=== PATIENT | male | born 1975 | race Caucasian/White ===

== ENCOUNTER 2025-06-16 01:55 | Observation (INO) | payer MEDICAID, SELFPAY ==
[2025-06-16] VITALS (14 sets, daily range): BP systolic 99–144; BP diastolic 64–92; PULSE 72–115; RESP 16–22; TEMP 36.5–38.7; O2SAT 93–110; BMI 182780.0; BMI 32.4; BMI 34.3
--- NOTE | 2025-06-16 02:10 | EKG_ITS ---
[facility] Test Date: 2025-06-16 Pat Name: SHANICE CHÁVEZ Department: Room: - Gender: Male Guide: : 1975 Requested By: Amari Alexis Order Number: [id number] Reading MD: Amari Alexis Measurements Intervals [place] Rate: 116 P: 51 MS: 131 QRS: 37 QRSD: 93 T: 59 QT: 314 QTc: 437 Interpretive Statements SINUS TACHYCARDIA ABNORMAL RHYTHM ECG No previous ECG available for comparison /store/S0/[id number].pdf
--- NOTE | 2025-06-16 02:10 | PD.EDRME ---
Rapid Medical Screening Exam RME Arrival date/time: 06/16/25 01:55 This is a case of a 49-year-old male who came into the emergency room due to generalized weakness vomiting abdominal pain for 1 day no chest pain no shortness of breath persistence of the symptoms this patient called 911 and hence was brought by the ambulance Chief Complaint: General Adult/Misc Complain Time Seen by Provider: 06/16/25 02:09 Vital signs: Vital Signs Temperature 99.0 F 06/16/25 02:07 Pulse Rate 112 H 06/16/25 02:07 Respiratory Rate 18 06/16/25 02:07 Blood Pressure 116/65 06/16/25 02:07 Pulse Oximetry (%) 94 L 06/16/25 02:07 Oxygen Delivery Method Room Air 06/16/25 02:07
[2025-06-16 02:52] LABS: Basophils # (Auto) 0.0 Thou/mm3 (0.0-0.2); Basophils % (Auto) 0 % (0-2.5); Eosinophils # (Auto) 0.0 Thou/mm3 (0.0-0.5); Eosinophils % (Auto) 0 % (0-10); Hematocrit 43.8 % (41.0-53.0); Hemoglobin 15.1 g/dL (13.5-16.0); Immature Granulocytes Auto 0.25 Thou/mm3 (0.00-0.00); Lymphocytes # (Auto) 1.4 Thou/mm3 (1.0-4.8); Lymphocytes % (Auto) 7 % (10-50); Mean Corpuscular HGB Conc 34.5 g/dl (31.0-37.0); Mean Corpuscular Hemoglobin 31.0 pg (25.0-35.0); Mean Corpuscular Volume 90 fL (80-100); Monocytes # (Auto) 0.7 Thou/mm3 (0.0-0.8); Monocytes % (Auto) 4 % (0-12); Neutrophils # (Auto) 17.0 Thou/mm3 (1.8-7.7); Neutrophils % (Auto) 88 % (37-80); Nucleated Red Blood Cell # 0.00 Thou/mm3 (0.00-0.00); Nucleated Red Blood Cell % 0 /100 WBC (0); Platelet Count 124 Thou/mm3 (140-440); RDW Standard Deviation 43.7 fL (35.1-43.9); Red Blood Count 4.87 Miln/mm3 (4.50-5.90); White Blood Count 19.4 Thou/mm3 (3.8-10.6)
[2025-06-16 02:56] LABS: Alanine Aminotransferase 26 U/L (10-49); Albumin, Serum 4.1 gm/dL (3.5-5.0); Albumin/Globulin Ratio 1.5 (1.2-2.2); Alkaline Phosphatase 83 U/L (46-116); Anion Gap 11 (7-16); Aspartate Amino Transferase 36 U/L (0-34); BUN/Creatinine Ratio 9 Ratio (12-20); Bilirubin,Total 1.0 mg/dL (0.3-1.2); Blood Urea Nitrogen 10 mg/dL (9-23); Calcium 8.8 mg/dL (8.3-10.6); Calcium (Corrected) 8.8 mg/dL (8.5-10.1); Carbon Dioxide 19.9 mMol/L (20.0-31.0); Chloride 99 mMol/L (98-107); Creatinine (Component) 1.1 mg/dL (0.6-1.3); Estimated Creatinine Clearance 82.1 mL/min (>60); Globulin 2.8 gm/dL (2.3-3.5); Glucose 112 mg/dL (74-106); Lipase 23 U/L (12-53); Osmolality,Calculated 260 (275-295); Potassium 4.0 mMol/L (3.4-5.1); Sodium 130 mMol/L (136-145); Total Protein 6.9 gm/dL (5.7-8.2); Troponin I < 0.020 ng/mL (0.0-0.045); eGFR > 60 See Note
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
[2025-06-16] MEDS: SODIUM CHLORIDE 0.9% 1000 ML 1,000 ML 999 ML IV (04:15)
[2025-06-16] MEDS: cefTRIAXone/D5w 1gm IV premix 1 GM/50 ML BAG IV (04:29)
[2025-06-16 04:57] LABS: Lactate (Lactic Acid) 1.4 mMol/L (0.4-2.0)
[2025-06-16] MEDS: ACETAMINOPHEN 325 MG TABLET 650 MG PO (05:09)
[2025-06-16 05:10] LABS: Collection Type, Urine Clean Catch
--- NOTE | 2025-06-16 05:11 | PC.NURSE ---
PT BROUGHT IN MY EMS TO THE ED FOR GENERALIZED WEAKNESS AND N/V FOR X2DAYS. PT HAS SEVERE REDNESS AND SWELLING ON THE LEFT LEG
[2025-06-16 05:17] LABS: Bilirubin,Urine Negative (Negative); Blood,Urine Negative (Negative); Clarity,Urine Clear (Clear/Hazy); Color,Urine Yellow (Lt Yel-Yel); Glucose, Urine Negative (Negative); Ketones,Urine 2+ (Negative); Leukocyte Esterase,Urine Negative (Negative); Nitrite,Urine Negative (Negative); PH,Urine 6.0 (5.0-7.0); Protein,Urine 1+ (Neg - Trace); RBC,Urine 2 /hpf (0-3); Specific Gravity,Urine 1.022 (1.001-1.035); Squamous Epithelial Cell,Urine < 1 /hpf (0-5); Urobilinogen,Urine Negative mg/dL (0.0-1.0); WBC,Urine 4 /hpf (0-5)
--- NOTE | 2025-06-16 05:24 | XR_ITS ---
Examination: Tibia-Fibula, left , 2 views Technique: Tibia-fibula AP lateral 2 views Date and time of exam: June 16, 2025, 0540 hours INDICATIONS: Injury to the knee today, knee pain FINDINGS: Injury to the lower leg today, lower leg pain. FINDINGS: No fracture or dislocation. No foreign body IMPRESSION: No fracture or dislocation
--- NOTE | 2025-06-16 05:28 | XR_ITS ---
Examination: Venous duplex lower extremity sonogram, bilateral. Date and time of exam: June 16, 2025, 0917 hrs. Indications: Patient fell last week with injury to leg, leg pain and knee pain post injury Technique: Multiple sonographic images of the deep venous system have been obtained. B-mode/2-D grayscale imaging of vascular structures and Doppler spectral analysis (waveforms) and color performed Both legs are examined. Findings: Findings consistent with nonocclusive DVT in the right popliteal vein Left popliteal vein is not visualized Remaining system unremarkable Impression: Positive for nonocclusive thrombus in the right popliteal vein
--- NOTE | 2025-06-16 05:31 | XR_ITS ---
Examination: AP chest single view TECHNIQUE: AP portable semiupright chest single view Date and time: June 16, 2025, 0547 hours INDICATIONS: Chest pain shortness of breath today. FINDINGS: Early pneumonia left base Normal heart size Right lung clear Mild osteopenia IMPRESSION: Early pneumonia left base
--- NOTE | 2025-06-16 05:37 | ESHP_ITS ---
Documentation for date of: 06/16/25 HPI History of Present Illness History of present illness: Efe Jaimes is a 49-year-old male with no PMH who presents today with leg pain. Patient states that he fell and scraped his knee while he was fishing a week ago. Since then, the leg has become more red, swollen, and painful. He endorses back pain (around T10-L2) that he says has been longstanding probably owing to his sleeping position . He also endorses shortness of breath and palpitations that come and go. Patient is medically non-compliant and has not seen a PCP in many years. In the ED, vitals showed: BP 116/65 HR 112 RR 18 Temp 99.0 SpO2 94% on room air ED Course: CBC showed elevated WBC 19.4 with neutrophilic predominance with some slight thrombocytopenia. CMP showed hyponatremia 130, slightly low carbon dioxide, slightly low osmolality 260, and slightly elevated AST 36 (normal ALT 26). UA showed 1+ protein and 2+ ketones but was otherwise unremarkable. Imaging: EKG was unremarkable. In the ED, patient was given 1 L NS bolus and IV ceftriaxone 1 g. Patient was admitted for the work-up and management of extensive left leg cellulitis. Review of Systems Review of Systems Narrative Review of Systems: General: Denies fevers or chills HEENT: Denies congestion or sore throat Heart: Endorses palpitations. Denies chest pain Lungs: Endorses shortness of breath. Denies cough Abdomen: Denies abdominal pain, nausea, vomiting, constipation, diarrhea, or blood in stool Genitourinary: Denies frequency, urgency, dysuria, or hematuria Neurology: Denies any changes in vision, weakness or difficulty speaking Musculoskeletal: Endorses back pain around T10-L2. Review of systems otherwise negative except what is mentioned above. Past Medical History Past Medical History Comments PMH COMMENT: (conducted quickly due to late admission but may warrant a more in- depth interview) PMH: none PSH: none Medications: none Allergies: none FH: none SH: none Exam Vital Signs Temp Pulse Resp BP Pulse Ox O2 Del Method 101 F H 108 H 19 124/75 93 L Room Air 06/16/25 05:09 06/16/25 03:33 06/16/25 03:33 06/16/25 03:33 06/16/25 03:33 06/16/25 03:33 Narrative Exam Physical Exam: General: Some distress. Alert. Skin: Abrasions seen on left ponce which is erythematous, edematous, and weeping. Red streaking seen climbing up left leg (lymphadenitis). Weeping. Warm, scabbing lesions on right proximal calf. Head: Normocephalic, atraumatic. Eye: Normal conjunctiva, PERRL. Throat: Oral mucosa moist. No obvious lesions in oropharynx. Cardiovascular: Tachycardic rate and normal rhythm, no murmur, +S1/S2. Respiratory: Wheezing. No crackles. Gastrointestinal: Soft, nontender, non-distended. No guarding or rebound tenderness. Extremities: Left leg is edematous. No cyanosis, no clubbing. 2+ radial pulse bilaterally, 2+ posterior tibial pulse bilaterally. Neuro: A&Ox2 (thought time was June 2026). Conversant, moving all extremities. No overt cerebellar signs/incoordination. Psychiatric: Cooperative, appropriate affect. Results: Labs 06/16/25 08:19 06/16/25 08:19 Labs: Short CBC 06/16/25 Range/Units 02:26 WBC 19.4 H (3.8-10.6) Thou/mm3 Hgb 15.1 (13.5-16.0) g/dL Hct 43.8 (41.0-53.0) % Plt Count 124 L (140-440) Thou/mm3 BMP 06/16/25 02:26 Sodium 130 L Potassium 4.0 Chloride 99 Carbon Dioxide 19.9 L BUN 10 Creatinine 1.1 Glucose 112 H Calcium 8.8 Cardiac Enzymes 06/16/25 Range/Units 02:26 Troponin I < 0.020 (0.0-0.045) ng/mL Liver Function 06/16/25 Range/Units 02:26 Total Bilirubin 1.0 (0.3-1.2) mg/dL AST 36 H (0-34) U/L ALT 26 (10-49) U/L Alkaline Phosphatase 83 (46-116) U/L Albumin 4.1 (3.5-5.0) gm/dL Urine 06/16/25 Range/Units 04:57 Urine Color Yellow (Lt Yel-Yel) Urine Clarity Clear (Clear/Hazy) Urine pH 6.0 (5.0-7.0) Ur Specific [place] 1.022 (1.001-1.035) Urine Protein 1+ A (Neg - Trace) Urine Glucose (UA) Negative (Negative) Quality Measures Quality Measures sepsis Current suspected stage: ruled out (no end-organ damage) Possible source: skin/soft tissue Blood cultures ordered: yes Antibiotic ordered: Yes Medications Home Medications and Allergies Home Medications ?Medication ?Instructions ?Recorded ?Confirmed ?Type No Known Home Medications 06/16/2505/22 History Allergies Allergy/AdvReac Type Severity Reaction Status Date / Time No Known Allergies Allergy Verified 06/16/25 02:02 Visit Medications Doxycycline Hyclate (Doxycycline 100 Mg Tablet) 100 mg PO BID PHONG Stop: 06/23/25 08:59 Heparin Sodium (Porcine) (Heparin Sod Inj 5000 Unit/Ml Vial) 5,000 unit SC Q12HR PHONG Stop: 06/30/25 08:59 Ceftriaxone Sodium/Dextrose (Rocephin/D5w 1gm Iv Premix) 1 gm in 50 mls @ 100 mls/hr IV QDAY PHONG Stop: 06/23/25 08:59 Nicotine (Nicotine Patch 7 Mg/24 Hr Patch.Td24) 7 mg TOP X1 ONE Stop: 06/16/25 05:29 Ondansetron HCl (Ondansetron Inj 2 Mg/Ml Inj 2 Ml) 4 mg IVP Q6H PRN; Protocol PRN Reason: NAUSEA OR VOMITING Stop: 07/16/25 05:27 Sennosides (Senna Tablet) 1 tab PO QDAY PRN; Protocol PRN Reason: constipation Stop: 07/16/25 05:27 Discontinued Medications Acetaminophen (Acetaminophen 325 Mg Tablet) 650 mg PO X1 ONE Stop: 06/16/25 05:02 Last Admin: 06/16/25 05:09 Dose: 650 mg Ceftriaxone Sodium/Dextrose (Rocephin/D5w 1gm Iv Premix) 1 gm in 50 mls @ 100 mls/hr IV X1 ONE Stop: 06/16/25 04:34 Last Infusion: 06/16/25 05:05 Dose: Infused Sodium Chloride (Ns) 1,000 mls @ 999 mls/hr IV .Q1H1M ONE Stop: 06/16/25 05:06 Last Infusion: 06/16/25 05:16 Dose: Infused Assessment & Plan Assessment Efe Jaimes is a 49-year-old male with no PMH who presents today with leg pain. Patient was admitted for the work-up and management of sepsis r/o 2/2 left leg cellulitis. #Extensive Cellulitis (left leg) #Leukocytosis Patient meets SIRS criteria (3/4) by the following: Temperature above 100.4 (101.7), HR>90 (112), WBC above 12 (19.4) + source of infection (left leg cellulitis) Evidence for source of infection is the finding of abrasions seen on left ponce which is erythematous, edematous, and weeping with possible lymphadenitis. qSOFA ratin Elevated WBC is likely 2/2 cellulitis Diagnostic Inquiry -CBC, CMP -Follow up on BCx -Follow up on tibia and fibula X-ray results -Follow up on CXR results -Follow up on venous doppler ultrasound of bilateral lower extremities results -BNP -Follow up on daily weight Treatment Plan -Antibiotic regimen: IV ceftriaxone 1 g qD, PO doxycycline 100 mg BID #Chronic medical problems #Smoking history #Wheezing #Ketonuria UA showed 2+ ketones and 1+ protein. Diagnostic Inquiry -Flu and pneumonia vaccine screen -Hemoglobin A1c -Lipid panel -UDS Treatment Plan -Nicotine patch -Levalbuterol prn for wheezing Hospital Management: Disposition: undergoing work-up and management of sepsis r/o 2/2 left leg cellulitis (in observation) Diet: cardiac GI Prophylaxis: none Bowel Prophylaxis: senna DVT Prophylaxis: heparin CODE STATUS: Full Code I have examined the patient and conferred with my attending, Dr. Edwards, and my senior resident, Dr. Dexter, regarding them. Taran Partida DO PGY-1 Internal Medicine Plan I attest that I was physically present for the evaluation, physical examination, lab and imaging review of the patient with the residents. I discussed the case with the residents and agree with the findings and plans of care as documented above. After examination of the patient and review of the clinical data I feel that this patient needs observation in the hospital for further treatment/evaluation. Patient is a 49 years old male with no known medical history presented to the ED with complaint of left leg pain. Patient stated that he scraped his left knee while fishing a week ago, following with his left leg has been getting progressively red swollen and painful. He has not seen doctors in many years. In the ED, found to be tachycardic with heart rate of 112, temperature 99.0. Rest of the vitals were within normal limits, saturating well on room air. Lab results show WBC of 19.4, sodium 130, AST 36. Urinalysis showed 1+ protein and 2+ ketones. EKG was obtained in the ED, did not show any ST changes. At bedside, patient has swelling of left leg throughout whole ponce. Noted to have redness, warmth, tenderness some weeping and breakage of skin. Also noted to have warmth and tenderness around his right calf. We will admit the patient on observation for management of extensive cellulitis of left leg. Will start him on IV antibiotics, obtain blood culture, obtain imaging of tibia and fibula and venous Doppler of bilateral lower extremities. Patient has chronic smoking history and mild wheezing, we will also obtain chest x-ray. Britney Edwards MD
--- NOTE | 2025-06-16 05:51 | PC.NURSE ---
NICOTINE PATCH NOT IN [facility]. PT DENIES ANY CRAVINGS AND STATES HE IS OKAY TO WAIT UNTIL PHARMACY IS OPEN TO BRING IT TO FLOOR.
[2025-06-16 06:30] LABS: Magnesium 1.2 mg/dL (1.6-2.6); Phosphorous 2.3 mg/dL (2.4-5.1)
[2025-06-16 06:33] LABS: B-Type Natriuretic Peptide 94 pg/mL (0-100)
[2025-06-16 06:34] LABS: Amphetamine/Methamp Scrn,U Positive (Negative); Barbiturate Screen,Urine Negative (Negative); Benzodiazepines Screen,Urine Negative (Negative); Benzoylecgonine Screen, Ur Negative (Negative); Fentanyl Screen,Urine Negative (Negative); Opiate Screen,Urine Negative (Negative); THC Screen,Urine Positive (Negative)
--- NOTE | 2025-06-16 07:56 | PC.NURSE ---
pt to ER with complaints of altered mental status currently pt lethargic however AA x3 soiled smeared brown stool. pt clean brief applied linen changed awaiting labs assessed vital signs taken pt states he lives with his gf
[2025-06-16 08:27] LABS: Basophils # (Auto) 0.0 Thou/mm3 (0.0-0.2); Basophils % (Auto) 0 % (0-2.5); Eosinophils # (Auto) 0.0 Thou/mm3 (0.0-0.5); Eosinophils % (Auto) 0 % (0-10); Hematocrit 43.8 % (41.0-53.0); Hemoglobin 15.1 g/dL (13.5-16.0); Immature Granulocytes Auto 0.13 Thou/mm3 (0.00-0.00); Lymphocytes # (Auto) 1.5 Thou/mm3 (1.0-4.8); Lymphocytes % (Auto) 9 % (10-50); Mean Corpuscular HGB Conc 34.5 g/dl (31.0-37.0); Mean Corpuscular Hemoglobin 31.2 pg (25.0-35.0); Mean Corpuscular Volume 91 fL (80-100); Monocytes # (Auto) 0.9 Thou/mm3 (0.0-0.8); Monocytes % (Auto) 5 % (0-12); Neutrophils # (Auto) 14.2 Thou/mm3 (1.8-7.7); Neutrophils % (Auto) 85 % (37-80); Nucleated Red Blood Cell # 0.00 Thou/mm3 (0.00-0.00); Nucleated Red Blood Cell % 0 /100 WBC (0); Platelet Count 125 Thou/mm3 (140-440); RDW Standard Deviation 44.3 fL (35.1-43.9); Red Blood Count 4.84 Miln/mm3 (4.50-5.90); White Blood Count 16.7 Thou/mm3 (3.8-10.6)
--- NOTE | 2025-06-16 08:27 | PC.NURSE ---
called pharmacy to bring nutra phos and nicotine patch to ER not in our pixys
[2025-06-16] MEDS: Magnesium Sulfate 2 GM Ivpb 2 GM/50 ML BAG IV (08:32)
[2025-06-16 08:45] LABS: Alanine Aminotransferase 25 U/L (10-49); Albumin, Serum 4.0 gm/dL (3.5-5.0); Albumin/Globulin Ratio 1.5 (1.2-2.2); Alkaline Phosphatase 80 U/L (46-116); Anion Gap 10 (7-16); Aspartate Amino Transferase 38 U/L (0-34); BUN/Creatinine Ratio 10 Ratio (12-20); Bilirubin,Total 0.7 mg/dL (0.3-1.2); Blood Urea Nitrogen 11 mg/dL (9-23); Calcium 8.6 mg/dL (8.3-10.6); Calcium (Corrected) 8.6 mg/dL (8.5-10.1); Carbon Dioxide 23.7 mMol/L (20.0-31.0); Chloride 100 mMol/L (98-107); Creatinine (Component) 1.1 mg/dL (0.6-1.3); Estimated Creatinine Clearance 104.0 mL/min (>60); Globulin 2.7 gm/dL (2.3-3.5); Glucose 105 mg/dL (74-106); Osmolality,Calculated 267 (275-295); Potassium 4.0 mMol/L (3.4-5.1); Sodium 134 mMol/L (136-145); Total Protein 6.7 gm/dL (5.7-8.2); eGFR > 60 See Note
[2025-06-16] MEDS: HEPARIN SOD INJ 5000 UNIT/ML VIAL SC (09:24)
[2025-06-16] MEDS: DOXYCYCLINE 100 MG TABLET PO ×2 (09:24→20:12)
[2025-06-16] MEDS: NAPH,KPH MBDB 1 PACKET (1.5 GM) PO (09:24)
--- NOTE | 2025-06-16 13:43 | ESPR_ITS ---
Documentation for date of: 06/16/25 Subjective Subjective Interval history: No acute events overnight. Patient seen and examined at bedside this AM. Complaining of lower back pain (chronic but worsened due to laying on his back), and left lower extremity pain from cellulitis. Also endorses shortness of breath since fall a couple weeks ago, fell and scraped his knee while fishing. Labs and vitals were reviewed. WBC downtrending. U tox positive for meth and marijuana. Sodium 134, mild hyponatremic. Chest x-ray shows early pneumonia left base and mild osteopenia. Fibula/tibula x-ray unremarkable. EKG unremarkable. Patient does not meet sepsis criteria as there is no end organ damage, treating with IV ceftriaxone and p.o. Doxy. Patient appears to be more uncomfortable than acknowledges, possibly withdrawing from meth or marijuana. Review of systems otherwise negative except what is mentioned above. Exam Vital Signs Temp Pulse Resp BP Pulse Ox O2 Del Method 98.9 F 93 17 123/69 99 Room Air 06/16/25 12:53 06/16/25 12:53 06/16/25 12:53 06/16/25 12:53 06/16/25 12:53 06/16/25 12:53 Narrative Exam Physical Exam General: Awake and in mild distress. Conversational. HEENT: Normocephalic, atraumatic, mucous membranes moist. Heart: Regular rate and rhythm, normal S1 and S2, no murmurs. Lungs: Clear to auscultation with no wheezing or crackles. Abdomen: Soft, nondistended, nontender, positive bowel sounds. No guarding or rebound tenderness. Neurologic: Alert and oriented x3, no gross neurological deficit, and patient able to move all 4 extremities. Extremities: Erythema, swelling, and tenderness of left lower extremity. Formed scab on left ponce. Skin: No rash or ecchymoses. Objective Labs 06/17/25 05:08 06/17/25 05:08 Labs: Laboratory Results - last 24 hr 06/16/25 06/16/25 06/16/25 02:26 04:50 04:57 WBC 19.4 H RBC 4.87 Hgb 15.1 Hct 43.8 MCV 90 MCH 31.0 MCHC 34.5 RDW Std Deviation 43.7 Plt Count 124 L Neut % (Auto) 88 H Lymph % (Auto) 7 L [place] % (Auto) 4 Eos % (Auto) 0 Baso % (Auto) 0 Neut # (Auto) 17.0 H Lymph # (Auto) 1.4 [place] # (Auto) 0.7 Eos # (Auto) 0.0 Baso # (Auto) 0.0 Immature Gran # (Auto) 0.25 H Absolute Nucleated RBC 0.00 Immature Gran % 1 H Nucleated RBC % 0 Sodium 130 L Potassium 4.0 Chloride 99 Carbon Dioxide 19.9 L Anion Gap 11 BUN 10 Creatinine 1.1 Estim Creat Clear Calc 82.1 eGFR > 60 BUN/Creatinine Ratio 9 L Glucose 112 H Calculated Osmolality 260 L Lactic Acid 1.4 Calcium 8.8 Corrected Calcium 8.8 Phosphorus 2.3 L Magnesium 1.2 L Total Bilirubin 1.0 AST 36 H ALT 26 Alkaline Phosphatase 83 Troponin I < 0.020 B-Natriuretic Peptide 94 Total Protein 6.9 Albumin 4.1 Globulin 2.8 Albumin/Globulin Ratio 1.5 Lipase 23 Ur Collection Type Clean Catch Urine Color Yellow Urine Clarity Clear Urine pH 6.0 Ur Specific [place] 1.022 Urine Protein 1+ A Urine Glucose (UA) Negative Urine Ketones 2+ A Urine Blood Negative Urine Nitrite Negative Urine Bilirubin Negative Urine Urobilinogen (Auto) Negative Ur Leukocyte Esterase Negative Urine RBC 2 Urine WBC 4 Ur Squamous Epith Cells < 1 Urine Bacteria None Urine Opiates Screen Negative Urine Fentanyl Screen Negative Ur Barbiturates Screen Negative U Amphetamin/Meth Scrn Positive A U Benzodiazepines Scrn Negative U Cocaine Metab Screen Negative U Marijuana (THC) Screen Positive A 06/16/25 08:19 WBC 16.7 H RBC 4.84 Hgb 15.1 Hct 43.8 MCV 91 MCH 31.2 MCHC 34.5 RDW Std Deviation 44.3 H Plt Count 125 L Neut % (Auto) 85 H Lymph % (Auto) 9 L [place] % (Auto) 5 Eos % (Auto) 0 Baso % (Auto) 0 Neut # (Auto) 14.2 H Lymph # (Auto) 1.5 [place] # (Auto) 0.9 H Eos # (Auto) 0.0 Baso # (Auto) 0.0 Immature Gran # (Auto) 0.13 H Absolute Nucleated RBC 0.00 Immature Gran % 1 H Nucleated RBC % 0 Sodium 134 L Potassium 4.0 Chloride 100 Carbon Dioxide 23.7 Anion Gap 10 BUN 11 Creatinine 1.1 Estim Creat Clear Calc 104.0 eGFR > 60 BUN/Creatinine Ratio 10 L Glucose 105 Calculated Osmolality 267 L Lactic Acid Calcium 8.6 Corrected Calcium 8.6 Phosphorus Magnesium Total Bilirubin 0.7 AST 38 H ALT 25 Alkaline Phosphatase 80 Troponin I B-Natriuretic Peptide Total Protein 6.7 Albumin 4.0 Globulin 2.7 Albumin/Globulin Ratio 1.5 Lipase Ur Collection Type Urine Color Urine Clarity Urine pH Ur Specific [place] Urine Protein Urine Glucose (UA) Urine Ketones Urine Blood Urine Nitrite Urine Bilirubin Urine Urobilinogen (Auto) Ur Leukocyte Esterase Urine RBC Urine WBC Ur Squamous Epith Cells Urine Bacteria Urine Opiates Screen Urine Fentanyl Screen Ur Barbiturates Screen U Amphetamin/Meth Scrn U Benzodiazepines Scrn U Cocaine Metab Screen U Marijuana (THC) Screen Quality Measures Quality Measures sepsis Current suspected stage: ruled out Possible source: skin/soft tissue Blood cultures ordered: yes Antibiotic ordered: Yes Assessment & Plan Assessment Current Active Medications: Generic Name Dose Route Start Last Admin Trade Name Freq PRN Reason Stop Dose Admin Apixaban 5 mg 06/16/25 21:00 Apixaban 2.5 Mg Tablet PO 07/16/25 20:59 BID PHONG Doxycycline Hyclate 100 mg 06/16/25 09:00 06/16/25 09:24 Doxycycline 100 Mg Tablet PO 06/23/25 08:59 100 mg BID PHONG Administration Ceftriaxone Sodium/Dextrose 1 gm in 50 mls @ 100 mls/hr 06/17/25 06:00 Rocephin/D5w 1gm Iv Premix IV 06/24/25 05:59 QDAY PHONG Levalbuterol HCl 0.63 mg 06/16/25 05:54 Levalbuterol Rt 0.63 Mg/3 Ml Nebu INH 07/16/25 05:53 Q8HR PRN WHEEZING Ondansetron HCl 4 mg 06/16/25 05:28 Ondansetron Inj 2 Mg/Ml Inj 2 Ml IVP 07/16/25 05:27 Q6H PRN NAUSEA OR VOMITING Protocol Sennosides 1 tab 06/16/25 05:28 Senna Tablet PO 07/16/25 05:27 QDAY PRN constipation Protocol Plan Patient is a 49-year-old male with no significant past medical history who presents on 06/16 with left leg pain, admitted for the work-up and management of left leg cellulitis. #Left leg cellulitis #Leukocytosis Patient meets SIRS criteria (3/4) by the following: Temperature above 100.4 (101.7), HR>90 (112), WBC above 12 (19.4) + source of infection (left leg cellulitis); however no end organ damage, therefore, patient does not have sepsis. On exam, left leg is erythematous and edematous, with weeping with possible lymphadenitis. Leukocytosis likely secondary to cellulitis. qSOFA ratin 06/16: XR tibia and fibula were negative for fractures. CXR shows early left base pneumonia as well as mild osteopenia. Venous doppler US of left lower extremity showed right non-occlusive thrombus. BNP unremarkable. Plan: -Continue IV CFX and doxycycline -Pending blood cultures #Smoking history #Wheezing Possibly has COPD. - Nicotine patch - Levalbuterol prn for wheezing #Meth Use #Marijuana use Utox positive for meth and marijuana. May go into withdrawal. - Monitor for symptoms - Consider methadone if withdrawal symptoms worsen Health Maintenance Disposition: Treatment of left leg cellulitis, on antibiotics DVT prophylaxis: Heparin GI prophylaxis: Senna Diet: Cardiac CODE STATUS: FULL Patient plan of care was discussed with the attending physician, Dr. Maza. Laurence Deleon, PGY-1 Attending Provider Attestation/Addendum I have examined the patient, reviewed labs and imaging findings, discussed the case with the resident(s), and reviewed entered orders. I agree with the plan of care as outlined in this note, with these additional summaries/recommendations: Patient seen at bedside. No acute overnight events. Sepsis ruled out. Continue IV antibiotics for left leg cellulitis. No evidence of osteomyelitis although cellulitis fairly significant. Continue IV antibiotics. Blood culture results pending. Wound care as needed. Leukocytosis improving although not resolved. Left lower extremity ultrasound obtained which is positive for nonocclusive thrombus in the right popliteal vein. Patient started on Eliquis. Continue pain management as needed. Patient updated on the plan and in agreement. All questions answered to satisfaction. Please see residents note for additional details and management. Dr. Shaunna MD
[2025-06-16] MEDS: APIXABAN 2.5 MG TABLET 5 MG PO (20:12)
--- NOTE | 2025-06-16 20:15 | PC.NURSE ---
Per Dr. Partida, it is ok to give eliquis dose with a Plt count of 125.
[2025-06-16] MEDS: LEVALBUTEROL RT 0.63 MG/3 ML NEBU INH (20:37)
[2025-06-17] VITALS (7 sets, daily range): BP systolic 107–128; BP diastolic 68–82; PULSE 73–95; RESP 16–22; TEMP 36.1–37.5; O2SAT 95–99
[2025-06-17] MEDS: cefTRIAXone/D5w 1gm IV premix 1 GM/50 ML BAG IV (05:14)
[2025-06-17 06:04] LABS: Basophils # (Auto) 0.0 Thou/mm3 (0.0-0.2); Basophils % (Auto) 0 % (0-2.5); Eosinophils # (Auto) 0.1 Thou/mm3 (0.0-0.5); Eosinophils % (Auto) 1 % (0-10); Hematocrit 40.6 % (41.0-53.0); Hemoglobin 14.0 g/dL (13.5-16.0); Immature Granulocytes Auto 0.11 Thou/mm3 (0.00-0.00); Lymphocytes # (Auto) 1.5 Thou/mm3 (1.0-4.8); Lymphocytes % (Auto) 14 % (10-50); Mean Corpuscular HGB Conc 34.5 g/dl (31.0-37.0); Mean Corpuscular Hemoglobin 31.3 pg (25.0-35.0); Mean Corpuscular Volume 91 fL (80-100); Monocytes # (Auto) 0.7 Thou/mm3 (0.0-0.8); Monocytes % (Auto) 7 % (0-12); Neutrophils # (Auto) 8.1 Thou/mm3 (1.8-7.7); Neutrophils % (Auto) 77 % (37-80); Nucleated Red Blood Cell # 0.00 Thou/mm3 (0.00-0.00); Nucleated Red Blood Cell % 0 /100 WBC (0); Platelet Count 142 Thou/mm3 (140-440); RDW Standard Deviation 44.5 fL (35.1-43.9); Red Blood Count 4.48 Miln/mm3 (4.50-5.90); White Blood Count 10.5 Thou/mm3 (3.8-10.6)
[2025-06-17 06:30] LABS: Alanine Aminotransferase 22 U/L (10-49); Albumin, Serum 3.7 gm/dL (3.5-5.0); Albumin/Globulin Ratio 1.4 (1.2-2.2); Alkaline Phosphatase 74 U/L (46-116); Anion Gap 7 (7-16); Aspartate Amino Transferase 32 U/L (0-34); BUN/Creatinine Ratio 11 Ratio (12-20); Bilirubin,Total 0.5 mg/dL (0.3-1.2); Blood Urea Nitrogen 11 mg/dL (9-23); Calcium 8.4 mg/dL (8.3-10.6); Calcium (Corrected) 8.6 mg/dL (8.5-10.1); Carbon Dioxide 26.3 mMol/L (20.0-31.0); Cardiac Risk Estimate 4.5 RATIO (4.0-6.7); Chloride 102 mMol/L (98-107); Cholesterol 171 mg/dL (132-200); Creatinine (Component) 1.0 mg/dL (0.6-1.3); Estimated Creatinine Clearance 117.6 mL/min (>60); Globulin 2.7 gm/dL (2.3-3.5); Glucose 107 mg/dL (74-106); HDL Cholesterol 38 mg/dL (40-60); LDL Cholesterol,Calculated 112 mg/dL (0-130); Magnesium 1.5 mg/dL (1.6-2.6); Osmolality,Calculated 269 (275-295); Phosphorous 2.1 mg/dL (2.4-5.1); Potassium 3.7 mMol/L (3.4-5.1); Sodium 135 mMol/L (136-145); Total Protein 6.4 gm/dL (5.7-8.2); Triglycerides 103 mg/dL (30-150); eGFR > 60 See Note
[2025-06-17 06:43] LABS: Glucose Estimated Average 114 mg/dL (80-131); Hemoglobin A1C 5.6 % Hgb (4.8-6.0)
[2025-06-17] MEDS: NAPH,KPH MBDB 1 PACKET (1.5 GM) PO (09:09)
[2025-06-17] MEDS: APIXABAN 2.5 MG TABLET 5 MG PO ×2 (09:09→21:23)
[2025-06-17] MEDS: DOXYCYCLINE 100 MG TABLET PO ×2 (09:09→21:23)
[2025-06-17] MEDS: Magnesium Sulfate 2 GM Ivpb 2 GM/50 ML BAG IV (09:10)
--- NOTE | 2025-06-17 11:00 | PC.SS ---
Rounding: pending blood cultures, pt on IV ABX, DC plan home
[2025-06-17] MEDS: ACETAMINOPHEN 325 MG TABLET 650 MG PO (11:17)
--- NOTE | 2025-06-17 11:17 | ESPR_ITS ---
Documentation for date of: 06/17/25 Patient examined at bedside. Pending Blood cultures. Continue IV antibiotics for cellulitis of left foot at ponce region. NO Paresthesia. Motor function intact. Strong pulses. Continue Eliquis for DVT. Plan to discharge within the next 24 hours. Afebrile over the last 24 hours. Subjective Subjective Interval history: No acute events overnight. Patient seen and examined at bedside this AM. Complains of headache and 6 out of 10 left lower leg pain, started on Tylenol and [place] as needed. Complains of shortness of breath but reports that levalbuterol treatment last night helped, likely has COPD given extensive smoking history. Patient will need to follow-up with PCP. Labs and vitals were reviewed. Leukocytosis resolved, pending blood cultures. Will continue IV ceftriaxone and Doxy, as well as Eliquis. Anticipate discharge tomorrow depending on blood cultures. Review of systems otherwise negative except what is mentioned above. Exam Vital Signs Temp Pulse Resp BP Pulse Ox O2 Del Method 97.9 F 89 18 128/82 96 Room Air 06/17/25 08:00 06/17/25 08:00 06/17/25 08:00 06/17/25 08:00 06/17/25 08:00 06/17/25 08:00 Narrative Exam Physical Exam General: Awake and in no acute distress. Conversational. HEENT: Normocephalic, atraumatic, mucous membranes moist. Heart: Regular rate and rhythm, normal S1 and S2, no murmurs. Lungs: Clear to auscultation with no wheezing or crackles. Abdomen: Soft, nondistended, nontender, positive bowel sounds. No guarding or rebound tenderness. Neurologic: Alert and oriented x3, no gross neurological deficit, and patient able to move all 4 extremities. Extremities: Erythema, mild swelling, and no tenderness of left lower extremity. Formed scab on left ponce. Border drawn. Skin: No rash or ecchymoses. Objective Labs 06/18/25 04:45 06/18/25 04:45 Labs: Laboratory Results - last 24 hr 06/17/25 05:08 WBC 10.5 D RBC 4.48 L Hgb 14.0 Hct 40.6 L MCV 91 MCH 31.3 MCHC 34.5 RDW Std Deviation 44.5 H Plt Count 142 Neut % (Auto) 77 Lymph % (Auto) 14 [place] % (Auto) 7 Eos % (Auto) 1 Baso % (Auto) 0 Neut # (Auto) 8.1 H Lymph # (Auto) 1.5 [place] # (Auto) 0.7 Eos # (Auto) 0.1 Baso # (Auto) 0.0 Immature Gran # (Auto) 0.11 H Absolute Nucleated RBC 0.00 Immature Gran % 1 H Nucleated RBC % 0 Sodium 135 L Potassium 3.7 Chloride 102 Carbon Dioxide 26.3 Anion Gap 7 BUN 11 Creatinine 1.0 Estim Creat Clear Calc 117.6 eGFR > 60 BUN/Creatinine Ratio 11 L Glucose [address] Glu mg/dL 114 Hemoglobin A1c 5.6 Calculated Osmolality 269 L Calcium 8.4 Corrected Calcium 8.6 Phosphorus 2.1 L Magnesium 1.5 L Total Bilirubin 0.5 AST 32 ALT 22 Alkaline Phosphatase 74 Total Protein 6.4 Albumin 3.7 Globulin 2.7 Albumin/Globulin Ratio 1.4 Triglycerides 103 Cholesterol 171 LDL Cholesterol, Calc 112 HDL Cholesterol 38 L Cholesterol/HDL Ratio 4.5 Quality Measures Quality Measures sepsis Current suspected stage: ruled out Possible source: skin/soft tissue Blood cultures ordered: yes Antibiotic ordered: Yes Assessment & Plan Assessment Current Active Medications: Generic Name Dose Route Start Last Admin Trade Name Freq PRN Reason Stop Dose Admin Acetaminophen 650 mg 06/17/25 10:07 Acetaminophen 325 Mg Tablet PO 07/17/25 10:06 Q6HR PRN PAIN OR FEVER > 101 Apixaban 5 mg 06/16/25 21:00 06/17/25 09:09 Apixaban 2.5 Mg Tablet PO 07/16/25 20:59 5 mg BID PHONG Administration Doxycycline Hyclate 100 mg 06/16/25 09:00 06/17/25 09:09 Doxycycline 100 Mg Tablet PO 06/23/25 08:59 100 mg BID PHONG Administration Ceftriaxone Sodium/Dextrose 1 gm in 50 mls @ 100 mls/hr 06/17/25 06:00 06/17/25 05:14 Rocephin/D5w 1gm Iv Premix IV 06/24/25 05:59 100 mls/hr QDAY PHONG Administration Levalbuterol HCl 0.63 mg 06/16/25 05:54 06/16/25 20:37 Levalbuterol Rt 0.63 Mg/3 Ml Nebu INH 07/16/25 05:53 0.63 mg Q8HR PRN Administration WHEEZING Nicotine 7 mg 06/16/25 16:04 Nicotine Patch 7 Mg/24 Hr Patch.Td24 TOP 07/17/25 08:59 QDAY PRN SMOKING CESSATION Ondansetron HCl 4 mg 06/16/25 05:28 Ondansetron Inj 2 Mg/Ml Inj 2 Ml IVP 07/16/25 05:27 Q6H PRN NAUSEA OR VOMITING Protocol Sennosides 1 tab 06/16/25 05:28 Senna Tablet PO 07/16/25 05:27 QDAY PRN constipation Protocol Plan Patient is a 49-year-old male with no significant past medical history who presented on 06/16 with left leg pain, admitted for the work-up and management of left leg cellulitis. #Left leg cellulitis #Leukocytosis?resolved #Left lower base pneumonia #Provoked left lower extremity DVT Patient meets SIRS criteria (01/22) by the following: Temperature above 100.4 (101.7), HR>90 (112), WBC above 12 (19.4) + source of infection (left leg cellulitis); however no end organ damage, therefore, patient does not have sepsis. On exam, left leg is erythematous and edematous, with weeping with possible lymphadenitis. Leukocytosis likely secondary to cellulitis. qSOFA ratin 06/16: XR tibia and fibula were negative for fractures. CXR shows early left base pneumonia as well as mild osteopenia. Venous doppler US of left lower extremity showed right non-occlusive thrombus. BNP unremarkable. Venous Doppler of left lower extremity positive for nonocclusive thrombus in the right popliteal vein. DVT likely provoked as patient was not ambulating as much for the past couple weeks due to worsening cellulitis. Denied personal or family history of coagulation disorders. No history of cancer. 06/17: Blood cultures show no growth after 24 hours. Plan: -Continue IV CFX and doxycycline (06/16? -Continue Eliquis for at least 3 to 6 months -Pending blood cultures #Smoking history #Wheezing Likely has COPD given smoking history. Reports that levalbuterol helps shortness of breath. - Nicotine patch - Levalbuterol prn for wheezing - Recommend outpatient follow-up for possible COPD #Meth Use #Marijuana use Utox positive for meth and marijuana. May go into withdrawal. - Monitor for symptoms - Consider methadone if withdrawal symptoms worsen - Counseled patient on cessation Health Maintenance Disposition: Treatment of left leg cellulitis, on antibiotics DVT prophylaxis: Heparin GI prophylaxis: Senna Diet: Cardiac CODE STATUS: FULL Patient plan of care was discussed with the resident, Dr. Guerrero, and attending physician, Dr. Maza. Laurence Deleon, PGY-1 - The patient's plan was discussed with attending Dr. Shaunna Guerrero MD PGY2 Internal Medicine Attending Provider Attestation/Addendum I have examined the patient, reviewed labs and imaging findings, discussed the case with the resident(s), and reviewed entered orders. I agree with the plan of care as outlined in this note, with these additional summaries/recommendations: Patient seen at bedside. No acute overnight events. Patient continues to endorse discomfort and pain in his left lower extremity although improved compared to yesterday. Continue IV antibiotics for left leg cellulitis. No evidence of osteomyelitis although cellulitis fairly significant. Blood culture preliminarily showed no growth in 24 hours and we will await 48-hour kenia. Wound care as needed. Leukocytosis improving. Left lower extremity ultrasound obtained which is positive for nonocclusive thrombus in the right popliteal vein. Most likely provoked DVT in the setting of cellulitis and decreased mobility. Patient started on Eliquis and will likely require 3 to 6 months of anticoagulation. Continue pain management as needed. Patient updated on the plan and in agreement. All questions answered to satisfaction. Please see residents note for additional details and management. Dr. Shaunna MD
[2025-06-17] MEDS: PIPER/TAZO INJ 4.5 GM in SODIUM CHLORIDE 0.9% (POP) 100 ML IV ×2 (14:03→21:23)
[2025-06-17] MEDS: HYDROcodone/APAP 5/325 TABLET 1 TAB PO (16:43)
[2025-06-18] VITALS: BP 106/70; PULSE 93; RESP 18; TEMP 36.7; O2SAT 98
[2025-06-18 04:00] VITALS: BP 120/75; PULSE 82; RESP 18; TEMP 36.9; O2SAT 95
[2025-06-18] MEDS: HYDROcodone/APAP 5/325 TABLET 1 TAB PO (05:29)
[2025-06-18] MEDS: PIPER/TAZO INJ 4.5 GM in SODIUM CHLORIDE 0.9% (POP) 100 ML IV (05:30)
[2025-06-18 05:31] LABS: Basophils # (Auto) 0.0 Thou/mm3 (0.0-0.2); Basophils % (Auto) 0 % (0-2.5); Eosinophils # (Auto) 0.2 Thou/mm3 (0.0-0.5); Eosinophils % (Auto) 2 % (0-10); Hematocrit 39.4 % (41.0-53.0); Hemoglobin 13.1 g/dL (13.5-16.0); Immature Granulocytes Auto 0.04 Thou/mm3 (0.00-0.00); Lymphocytes # (Auto) 1.6 Thou/mm3 (1.0-4.8); Lymphocytes % (Auto) 17 % (10-50); Mean Corpuscular HGB Conc 33.2 g/dl (31.0-37.0); Mean Corpuscular Hemoglobin 30.6 pg (25.0-35.0); Mean Corpuscular Volume 92 fL (80-100); Monocytes # (Auto) 0.8 Thou/mm3 (0.0-0.8); Monocytes % (Auto) 9 % (0-12); Neutrophils # (Auto) 6.5 Thou/mm3 (1.8-7.7); Neutrophils % (Auto) 71 % (37-80); Nucleated Red Blood Cell # 0.00 Thou/mm3 (0.00-0.00); Nucleated Red Blood Cell % 0 /100 WBC (0); Platelet Count 143 Thou/mm3 (140-440); RDW Standard Deviation 45.9 fL (35.1-43.9); Red Blood Count 4.28 Miln/mm3 (4.50-5.90); White Blood Count 9.1 Thou/mm3 (3.8-10.6)
[2025-06-18 05:58] LABS: Alanine Aminotransferase 23 U/L (10-49); Albumin, Serum 3.6 gm/dL (3.5-5.0); Albumin/Globulin Ratio 1.4 (1.2-2.2); Alkaline Phosphatase 68 U/L (46-116); Anion Gap 9 (7-16); Aspartate Amino Transferase 28 U/L (0-34); BUN/Creatinine Ratio 10 Ratio (12-20); Bilirubin,Total 0.4 mg/dL (0.3-1.2); Blood Urea Nitrogen 10 mg/dL (9-23); Calcium 8.6 mg/dL (8.3-10.6); Calcium (Corrected) 8.9 mg/dL (8.5-10.1); Carbon Dioxide 27.9 mMol/L (20.0-31.0); Chloride 103 mMol/L (98-107); Creatinine (Component) 1.0 mg/dL (0.6-1.3); Estimated Creatinine Clearance 117.6 mL/min (>60); Globulin 2.5 gm/dL (2.3-3.5); Glucose 105 mg/dL (74-106); Magnesium 1.8 mg/dL (1.6-2.6); Osmolality,Calculated 278 (275-295); Phosphorous 3.2 mg/dL (2.4-5.1); Potassium 3.6 mMol/L (3.4-5.1); Sodium 140 mMol/L (136-145); Total Protein 6.1 gm/dL (5.7-8.2); eGFR > 60 See Note
[2025-06-18 07:39] VITALS: BP 114/70; PULSE 82; RESP 18; TEMP 36.4; O2SAT 93
[2025-06-18] MEDS: DOXYCYCLINE 100 MG TABLET PO (08:38)
[2025-06-18] MEDS: APIXABAN 2.5 MG TABLET 5 MG PO (08:38)
[2025-06-18 11:14] VITALS: BP 96/62; PULSE 80; RESP 17; TEMP 36.2; O2SAT 92
--- NOTE | 2025-06-18 11:23 | PC.NURSE ---
Called Dr. Deleon regarding order to infuse Mag, patient already given discharge instructions and PIV removed. Patient's ride here ready to be discharged. Patient does not want to stay for infusion.
--- NOTE | 2025-06-18 11:46 | ESDS_ITS ---
Planned Discharge Date 06/18/25 DS: Providers Provider Date of admission: 06/16/25 05:28 Primary care physician: Physician No Primary/Family Admitting Provider: Britney Edwards MD Attending Provider on Admission: Britney Edwards MD Consults: 06/16/25 13:40 [employer] Referral - Utilities Routine Comment: Positive screening for utility assistance needs. Attending Provider on DC: Britney Edwards MD Discharging Provider: Laurence Deleon, RESIDENT DS: Diagnosis Problem List Completed Was Problem List Reviewed/Reconciled?: Yes Hospital Course Hospital Course Hospital course: Summary: Patient is a 49-year-old male with no significant past medical history who presented on 06/16 with left leg pain, admitted for the work-up and management of left leg cellulitis. ED Course: Vitals: BP 116/65 HR 112 RR 18 Temp 99.0 SpO2 94% on room air Labs: WBC 19.4 with neutrophilic predominance with some slight thrombocytopenia, sodium 130, bicarb, serum osmolality 260, and AST 36. UA showed 1+ protein and 2+ ketones but was otherwise no sign of infection. Imaging: EKG unremarkable. Treatment: Given 1 L NS bolus and IV ceftriaxone 1 g. Reason for hospitalization: Patient is a 49-year-old male with no significant past medical history (no personal or family history of cancer or coagulation disorders) who presented on 06/16 with left leg pain, admitted for the work-up and management of left leg cellulitis. Patient reports he was fishing at night a week ago and slipped on some rocks scraping his knee. Worsening swelling since, has not been ambulating as frequently due to pain. Tibia-fibula x-rays are negative for fractures. Chest x-ray shows early left base pneumonia as well as mild osteopenia. Venous doppler US of left lower extremity showed right non-occlusive thrombus. Venous Doppler of left lower extremity positive for nonocclusive thrombus in the right popliteal vein. DVT likely provoked as patient was not ambulating as much for the past couple weeks due to worsening cellulitis. Blood cultures negative for growth. Discharged with Keflex and doxycycline for complete 10 day course. Started on Eliquis 5 mg twice daily since admission, discharged with Eliquis 10 mg for the next 7 days, then decrease to 5 mg. Discharge Recommendations: -Please complete Cephalexin and doxycycline, antibiotics, for skin infection. 7 more days, please complete entire course -Albuterol inhaler, 2 puffs per use, for shortness of breath. Please do not do more than 6 puffs in a single day. -Apixaban 10 mg twice daily for the next 7 days. Then 5 mg twice daily. Please speak to your primary care provider as you need 3 to 6 months of apixban for you DVT. Consider outpatinent work up for hypercoagulable states. -If you develop bleeding that does not stop please speak with your primary provider or seek immediate medial attention. -Please follow up with your primary care provider within one week of discharge -If your symptoms worsen,please seek immediate medical attention and return to your nearest emergency room -If you do not have a primary care provider, you may follow up at the [facility] at [address] [place] [address] [address], [place] [address], Hospital Diagnoses: #Left leg cellulitis #Leukocytosis?resolved #Left lower face pneumonia, incidental finding on CXR #Provoked left lower extremity DVT #Smoking history #Wheezing, likely COPD #Meth use #Marijuana use Disposition: Safe discharge to home. Patient plan of care was discussed with the resident, Dr. Guerrero, and attending physician, Dr. Edwards. Laurence Deleon, PGY-1 - The patient's plan was discussed with attending Dr. Jerry Guerrero MD PGY2 Internal Medicine Time Spent with Patient Time attestation: Total time spent providing and/or coordinating discharge services: at least 30 minutes of care coordination Time spent: Greater than 30 minutes Exam Vital Signs Temp Pulse Resp BP Pulse Ox O2 Del Method 97.6 F 82 18 114/70 93 L Room Air 06/18/25 07:39 06/18/25 07:39 06/18/25 07:39 06/18/25 07:39 06/18/25 07:39 06/18/25 07:39 Narrative Exam Physical Exam General: Awake and in no acute distress. Conversational. HEENT: Normocephalic, atraumatic, mucous membranes moist. Heart: Regular rate and rhythm, normal S1 and S2, no murmurs. Lungs: Clear to auscultation with no wheezing or crackles. Abdomen: Soft, nondistended, nontender, positive bowel sounds. No guarding or rebound tenderness. Neurologic: Alert and oriented x3, no gross neurological deficit, and patient able to move all 4 extremities. Extremities: Erythema, mild swelling, and no tenderness of left lower extremity. Border drawn, erythema receding and swelling improved (wrinkles observed). Formed scab on left ponce. Skin: No rash or ecchymoses. Discharge Plan Plan Patient Disposition: HOME (Self Care) Patient condition on transfer: Stable Care Plan Goals: Instructions: -Please complete Cephalexin and doxycycline, antibiotics, for skin infection. 7 more days, please complete entire course -Albuterol inhaler, 2 puffs per use, for shortness of breath. Please do not do more than 6 puffs in a single day. -Apixaban 10 mg twice daily for the next 7 days. Then 5 mg twice daily. Please speak to your primary care provider as you need 3 to 6 months of apixban for you DVT. Consider outpatinent work up for hypercoagulable states. -If you develop bleeding that does not stop please speak with your primary provider or seek immediate medial attention. -Please follow up with your primary care provider within one week of discharge -If your symptoms worsen,please seek immediate medical attention and return to your nearest emergency room -If you do not have a primary care provider, you may follow up at the [facility] at [facility] [address], [place] [address], Prescriptions/Referrals Prescriptions/Med Rec: New apixaban 5 mg tablet 5 mg PO BID 30 Days Qty: 60 0RF doxycycline hyclate 100 mg capsule 100 mg PO BID 7 Days Qty: 14 0RF cephalexin 500 mg capsule 500 mg PO TID 7 Days Qty: 21 0RF albuterol sulfate 90 mcg/actuation HFA aerosol inhaler 2 puff inhalation QID PRN (Reason: shortness of breath or wheezing) 30 Days Qty: 8.5 0RF Rx Instructions: Please do not exceed more than 6 puffs per day apixaban 5 mg tablet 10 mg PO BID 7 Days Qty: 28 0RF Referrals: No Primary/Family,Physician [Primary Care Provider] - Patient/Caregiver Discharge Instructions Education Materials: ED Cellulitis Print Language: Frisian Stand Alone Forms: Edwina Award Info., Patient Portal Info Letter, Work/Release Restrictions Discharge Order Discharge Orders: Discharge (Routine); Ordered 06/18/25 Ordered By: Lizzy Guerrero Quality Discharge Quality Measures VTE prophylaxis Attestestation MD Attestation I attest that I was physically present for the evaluation, physical examination, lab and imaging review of the patient with the residents. I discussed the case with the residents and agree with the findings and plans of care as documented above. Britney Edwards MD
--- NOTE | 2025-06-19 08:32 | CHAP ---
Patient was visited by a Spiritual Care Volunteer on 06/18/2025 between 0900 and 1200 and received comfort, encouragement and/or prayer.
== END 2025-06-18 11:25 | disposition home or self-care (01) ==
LOC: SERX 02:57 → SERHOLD 06-17 07:56 → S3NX 06-17 07:56
PROVIDERS: Nurse Practitioner Family; Admitting Provider Student in an Organized Health Care Education/Training Program; Emergency Provider Emergency Medicine; Visit Provider Student in an Organized Health Care Education/Training Program
DX: L03.116 Cellulitis of left lower limb (principal); E87.1 Hypo-osmolality and hyponatremia; F12.90 Cannabis use, unspecified, uncomplicated; G89.29 Other chronic pain; M85.80 Other specified disorders of bone density and structure, unspecified site; D69.6 Thrombocytopenia, unspecified; J18.9 Pneumonia, unspecified organism; I82.492 Acute embolism and thrombosis of other specified deep vein of left lower extremity
CPT/HCPCS: 36415; 71045; 73590; 80053; 80061; 80069; 80307; 81001; 83036; 83605; 83690; 83735; 83880; 84100; 84484; 85025; 87040; 87811; 93005; 93970; 94640; 96365; 96366; 96372; G0378; J0696; J1644; J2543; J3475; J7030; A9270

== ENCOUNTER 2025-06-21 08:56 | Outpatient (AMB) | payer MEDICAID, SELFPAY ==
[2025-06-21 09:34] VITALS: BP 120/81; PULSE 98; RESP 20; TEMP 36.8; O2SAT 95
--- NOTE | 2025-06-21 09:34 | ACNOTE_ITS ---
Vital Signs 06/21/25 09:34 Height 1.85 m Height Method Stated BP 120/81 Blood Pressure Source Automatic Cuff Blood Pressure Location Left Upper Arm Position Sitting Respiration 20 Pulse 98 Pulse Source Monitor Temp 98.3 F Temp Source Oral Pulse Oximetry (%) 95 Oxygen Delivery Method Room Air Allergies/Meds Allergies & Medications Allergies No Known Allergies Allergy (Verified 06/21/25 09:35) Medication Reconciliation albuterol sulfate 90 mcg/actuation aerosol inhaler 2 puff inhalation QID PRN shortness of breath or wheezing 1 month #8.5 grams 06/18/25 [Rx Confirmed 06/21/25] apixaban 5 mg tablet 5 mg PO BID DVT 1 month #60 tabs 06/18/25 [Rx Confirmed 06/21/25] tramadol 50 mg tablet 50 mg PO Q6H PRN pain #12 tabs 06/21/25 [Rx] hydrocodone 5 mg-acetaminophen 325 mg tablet 1 tab PO Q6H PRN pain 2 weeks #60 tabs 06/26/25 [Rx] MA Intake Visit Data Collection New Patient or Established: Established Patient (seen at [facility] within 3 years) Seen by Clinical Staff ONLY (RN/MA): No Reason for Visit:: EMERGENCY ROOM FOLLOW UP Pain Present Currently: Yes Pain Location: Unable to identify (LEGS) Pain scale:: 8 Pain Scale Used: Gu[place]/Numerical Pressure Sealer And Tester Required: No PCP or OBGYN visit in last 3 months: Yes Hx Now: No Do You Feel Safe at Home: Yes Authorities Contacted: N/A Smoking Status Smoking Status: Current some day smoker Cessation Counseling Provided: SHANICE was advised that quitting smoking is the single most important factor to protect the health of themselves and their family. Discussed the benefits of quitting smoking with patient. Encouraged patient to quit smoking and provided Cessation assistance materials and resources. Tobacco Use: Cigarette Years smoked: 1 Are you interested in quitting?: No Immunization / Flu Flu Vaccine in the Last 12 Months: Yes Flu Vaccine Exclusion Criteria: No Exclusion Criteria Past Medical History Past Medical History CARDIAC: Negative Congestive Heart Failure RESPIRATORY: Negative Chronic Obstructive Pulmonary Disease (COPD) GENITOURINARY: Negative Renal Disease ENDOCRINE: Negative Diabetes Mellitus Type 1 or Diabetes Mellitus Type 2 Social History SMOKING STATUS: Smoking status: Current some day smoker PACK YEARS: Pack-Years: 35 ALCOHOL: Alcohol Intake: Never ALCOHOL FREQUENCY: Alcohol Intake Frequency: holidays/special occasions only HOUSING: Housing: House LIVES WITH: Lives With: Significant Other Patient Portal Questionaires PHQ-9 PHQ-2 Over the last 2 weeks, how often have you been bothered by any of the following problems? 1. Little interest or pleasure in doing things: not at all 2. Feeling down, depressed, or hopeless: not at all Total score: 0 PHQ-9 3. Trouble falling or staying asleep, or sleeping too much: Not at all 4. Feeling tired or having little energy: Not at all 5. Poor appetite or overeating: Not at all 6. Feeling bad about yourself - or that you are a failure or have let yourself or your family down: Not at all 7. Trouble concentrating on things, such as reading the newspaper or watching television: Not at all 8. Moving or speaking so slowly that other people could have noticed? - Or the opposite - being so fidgety or restless that you have been moving around a lot more than usual: not at all 9. Thoughts that you would be better off or of hurting yourself in some way: Not at all Total score: 0 Source: Developed by Drs. Nik Carrasquillo, Daphney Garsia, Agustin Bryson and colleagues, with an educational rachelle from [employer]. Depression screen completed yes Social History Living Situation History Housing: House Housing Other:: lives with girlfriend Tobacco History Smoking Status: Current some day smoker Packs per Day: 1 Pack-Years: 35 Alcohol History Alcohol Intake: Never Alcohol Intake Frequency: holidays/special occasions only Substance Use History Substance Use: marijuana use daily Domestic Abuse History Do You Feel Safe at Home: Yes Review of Systems Report any current symptoms Only answer those that you have currently: Past Medical History Past Medical History Have you ever been diagnosed with any of the following: Cardiology Problems Congestive Heart Failure: No Respiratory Problems Chronic Obstructive Pulmonary Disease (COPD): No Genital/Urinary Problems Renal Disease: No Endocrine Problems Diabetes Mellitus Type 1: No Diabetes Mellitus Type 2: No History of Present Illness PATRICIA Jaimes is a 49-year-old male with no known PMHx who was admitted to [facility] on 06/16 for left lower extremity cellulitis. Went fishing week prior to hospitalization, slipped on rocks scraping his knee with worsening swelling that brought him to hospital. Discharged soon thereafter on cephalexin and doxycycline and presents to [facility] 3 days later. Rash continues to be erythematous and more painful than before without significant improvement compared to demarcation prior to discharge. Denies fever but does have some chills, no numbness/tingling or weakness in LLE. Of note, was found to have a nonocclusive thrombus in the right lower extremity in the hospital and was started on Eliquis 10 mg for 7 days and then to decrease to 5 mg daily. Review of Systems Review of Systems Systems Reviewed: All systems reviewed, normal except as documented Objective/Exam Narrative Physical exam: General: AOx3, no acute distress, able to speak full sentences HEENT: NC/AT, mucous membranes moist, bilateral sclera anicteric Cardiovascular: regular rate and rhythm, S1/S2 present, no murmurs appreciated Pulmonary: clear to auscultation bilaterally, no rales/rhonchi/wheezes Abdominal: soft, non-tender, non-distended, no rebound/guarding, normal bowel sounds present Musculoskeletal: normal ROM, no peripheral edema Skin: erythematous and edematous rash of LLE with border drawn, noted scab formatin on left ponce Neuro: CN II-XII intact, no focal deficits Assessment & Plan Diagnosis / Problem List (1) Cellulitis: Status: Acute Qualifiers: Site of cellulitis: extremity Site of cellulitis of extremity: lower extremity Laterality: left Qualified Code(s): L03.116 - Cellulitis of left lower limb Assessment & Plan: Admitted to [facility] on 06/16 for left lower extremity cellulitis after fishing week prior, slipped on rocks and scraping his knee with worsening swelling. Discharged with cephalexin and doxycycline and presents to [facility] 3 days later. Rash continues to be erythematous and more painful than before without significant improvement compared to demarcation prior to discharge. Denies fever but does have some chills, no numbness/tingling or weakness in LLE. Plan: ? Continue current antibiotic regimen of cephalexin and doxycycline ? Recommended to keep lower extremity elevated, utilize heating pads ? CBC ordered ? RTC following Tuesday if rash contines to not improve (2) DVT of lower extremity (deep venous thrombosis): Status: Acute Qualifiers: Affected thrombotic vein of extremity: popliteal Chronicity: unspecified Laterality: right Qualified Code(s): I82.431 - Acute embolism and thrombosis of right popliteal vein Assessment & Plan: DVT noted in RLE in hospital Plan: ? Eliquis 10 mg for 7 days from discharge ? Eliquis 5 mg daily thereafter Orders: Orders [facility] 06/21/25 Office Procedures [facility] Level of Care Nursing/Assessment Patient Status: Established Patient Nursing Assessment/Reassessment: Medication Reconciliation, Update PMH in EMR and Vital Signs Coordination of Care: Complex Care and Chronic Disease 1-5, Consent,records obtained, informed consent, Education Simp Pt/Fam, Lab and Imaging orders, Results/Orders obtained and Staff clarify orders Established Patient Charge Established Patient Point Assignment: 105 Established Patient Point Charge: Level 3 (80-115)
== END 2025-06-21 12:18 | disposition home or self-care (01) ==
LOC: HODAHC 08:56
PROVIDERS: Supervising Provider Internal Medicine
DX: L03.116 Cellulitis of left lower limb (principal); I82.431 Acute embolism and thrombosis of right popliteal vein
CPT/HCPCS: 99213; G0463

== ENCOUNTER 2025-08-23 13:39 | Emergency (ER) | payer MEDICAID, SELFPAY ==
[2025-08-23 13:41] VITALS: BMI 34.2
[2025-08-23 13:58] VITALS: BP 133/85; PULSE 73; RESP 18; TEMP 36.9; O2SAT 99
--- NOTE | 2025-08-23 14:05 | EKG_ITS ---
[facility] Test Date: 2025-08-23 Pat Name: SHANICE CHÁVEZ Department: Room: - Gender: Male Ensemble Member: : 1975 Requested By: Jonathan Grijalva Order Number: [id number] Reading MD: Jonathan Grijalva Measurements Intervals [place] Rate: 89 P: 67 VA: 135 QRS: 55 QRSD: 98 T: 57 QT: 355 QTc: 432 Interpretive Statements SINUS RHYTHM Compared to ECG 06/16/2025 02:19:53 Sinus tachycardia no longer present /store/S0/[id number].pdf
--- NOTE | 2025-08-23 14:05 | XR_ITS ---
Examination: PA lateral chest 2 views TECHNIQUE: Upright PA lateral chest 2 views Date and time: August 23, 2025, 1410 hours INDICATIONS: Chest pain today. FINDINGS: Normal heart size. Lungs are clear. The osseous structures are intact IMPRESSION: No active disease
--- NOTE | 2025-08-23 14:05 | PD.EDRME ---
Rapid Medical Screening Exam E Arrival date/time: 08/23/25 13:39 50-year-old male with a history of congestive heart failure, presents to the emergency room with a chief complaint of bilateral lower extremity swelling as well as cellulitis to his left lower extremity. Patient states he was sent over by his primary care provider for IV antibiotics. I have greeted and performed a focused initial assessment of this patient. A comprehensive ED assessment and evaluation of the patient, analysis of all test results, and completion of the medical decision making process will be conducted by additional ED providers. Chief Complaint: Skin/Abscess/Foreign Body Time Seen by Provider: 08/23/25 13:42 Vital signs: Vital Signs Temperature 98.5 F 08/23/25 13:58 Pulse Rate 73 08/23/25 13:58 Respiratory Rate 18 08/23/25 13:58 Blood Pressure 133/85 H 08/23/25 13:58 Pulse Oximetry (%) 99 08/23/25 13:58 Oxygen Delivery Method Room Air 08/23/25 13:58 Vital signs reviewed by provider: Yes
--- NOTE | 2025-08-23 14:06 | XR_ITS ---
Examination: Venous duplex lower extremity sonogram, bilateral. Date and time of exam: August 23, 2025, 1422 hours INDICATIONS: Left lower leg redness swelling and pain 3 months Technique: Multiple sonographic images of the deep venous system have been obtained. B-mode/2-D grayscale imaging of vascular structures and Doppler spectral analysis (waveforms) and color performed Both legs are examined. Findings: Deep venous systems do not demonstrate abnormal echogenicity. All visualized deep veins exhibit compressibility. All visualized deep veins exhibit augmentation. Impression: Negative for deep vein thrombosis
[2025-08-23 14:31] LABS: Basophils # (Auto) 0.0 Thou/mm3 (0.0-0.2); Basophils % (Auto) 0 % (0-2.5); Eosinophils # (Auto) 0.2 Thou/mm3 (0.0-0.5); Eosinophils % (Auto) 2 % (0-10); Hematocrit 45.2 % (41.0-53.0); Hemoglobin 14.8 g/dL (13.5-16.0); Immature Granulocytes Auto 0.02 Thou/mm3 (0.00-0.00); Lymphocytes # (Auto) 2.4 Thou/mm3 (1.0-4.8); Lymphocytes % (Auto) 22 % (10-50); Mean Corpuscular HGB Conc 32.7 g/dl (31.0-37.0); Mean Corpuscular Hemoglobin 31.0 pg (25.0-35.0); Mean Corpuscular Volume 95 fL (80-100); Monocytes # (Auto) 0.5 Thou/mm3 (0.0-0.8); Monocytes % (Auto) 4 % (0-12); Neutrophils # (Auto) 7.6 Thou/mm3 (1.8-7.7); Neutrophils % (Auto) 71 % (37-80); Nucleated Red Blood Cell # 0.00 Thou/mm3 (0.00-0.00); Nucleated Red Blood Cell % 0 /100 WBC (0); Platelet Count 184 Thou/mm3 (140-440); RDW Standard Deviation 48.4 fL (35.1-43.9); Red Blood Count 4.78 Miln/mm3 (4.50-5.90); White Blood Count 10.7 Thou/mm3 (3.8-10.6)
[2025-08-23 14:42] LABS: INR 1.0 (0.9-1.3); Partial Thromboplastin Time 27.1 Seconds (22.0-36.0); Prothrombin Time 10.9 Seconds (9.0-12.2)
[2025-08-23 14:54] LABS: B-Type Natriuretic Peptide 22 pg/mL (0-100)
[2025-08-23 14:56] LABS: Alanine Aminotransferase 20 U/L (10-49); Albumin, Serum 4.3 gm/dL (3.5-5.0); Albumin/Globulin Ratio 1.5 (1.2-2.2); Alkaline Phosphatase 88 U/L (46-116); Anion Gap 8 (7-16); Aspartate Amino Transferase 22 U/L (0-34); BUN/Creatinine Ratio 8 Ratio (12-20); Bilirubin,Total 0.4 mg/dL (0.3-1.2); Blood Urea Nitrogen 8 mg/dL (9-23); Calcium 9.2 mg/dL (8.3-10.6); Calcium (Corrected) 9.2 mg/dL (8.5-10.1); Carbon Dioxide 28.2 mMol/L (20.0-31.0); Chloride 106 mMol/L (98-107); Creatinine (Component) 1.0 mg/dL (0.6-1.3); Estimated Creatinine Clearance 116.2 mL/min (>60); Globulin 2.8 gm/dL (2.3-3.5); Glucose 123 mg/dL (74-106); Magnesium 2.0 mg/dL (1.6-2.6); Osmolality,Calculated 282 (275-295); Potassium 4.6 mMol/L (3.4-5.1); Sodium 142 mMol/L (136-145); Total Protein 7.1 gm/dL (5.7-8.2); Troponin I < 0.002 ng/mL (0.0-0.045); eGFR > 60 See Note
[2025-08-23 15:49] LABS: Collection Type, Urine Clean Catch
[2025-08-23 16:02] LABS: Bacteria,Urine Rare; Bilirubin,Urine Negative (Negative); Blood,Urine Negative (Negative); Clarity,Urine Clear (Clear/Hazy); Color,Urine Yellow (Lt Yel-Yel); Culture Indicated,Urine Not Indicated; Glucose, Urine Negative (Negative); Ketones,Urine Negative (Negative); Leukocyte Esterase,Urine Negative (Negative); Nitrite,Urine Negative (Negative); PH,Urine 6.0 (5.0-7.0); Protein,Urine Trace (Neg - Trace); RBC,Urine 7 /hpf (0-3); Specific Gravity,Urine 1.027 (1.001-1.035); Squamous Epithelial Cell,Urine < 1 /hpf (0-5); Urobilinogen,Urine Negative mg/dL (0.0-1.0); WBC,Urine 2 /hpf (0-5)
[2025-08-23 16:26] LABS: Amphetamine/Methamp Scrn,U Positive (Negative); Barbiturate Screen,Urine Negative (Negative); Benzodiazepines Screen,Urine Negative (Negative); Benzoylecgonine Screen, Ur Positive (Negative); Fentanyl Screen,Urine Negative (Negative); Opiate Screen,Urine Negative (Negative); THC Screen,Urine Positive (Negative)
[2025-08-23 16:45] VITALS: BP 147/87; PULSE 73; RESP 15; TEMP 36.9; O2SAT 96
--- NOTE | 2025-08-23 16:50 | EDNOTE_ITS ---
ED Skin Abcess FB-RME/HPI General Chief complaint: Skin/Abscess/Foreign Body Stated complaint: SENT BY [facility] FOR IV ANTIBIOTICS, CELLULITIS L. LEG Time Seen by Provider: 08/23/25 13:42 Arrival date/time: 08/23/25 13:39 RME / HPI RME / HPI narrative: 08/23/25 13:39 50-year-old male with a history of congestive heart failure, presents to the emergency room with a chief complaint of bilateral lower extremity swelling as well as cellulitis to his left lower extremity. Patient states he was sent over by his primary care provider for IV antibiotics. Patient is having redness and swelling to the left lower extremity since May, was seen by PCP once and completed a course of antibiotic for 1 week. For the last few days patient noticed some blister on the lateral aspect of the leg. Patient is ambulatory. Denies any fever denies any trauma denies any other complaints. Patient admits of using marijuana meth and cocaine. Related Data Previous Rx's ?Medication ?Instructions ?Recorded tramadol 50 mg tablet 50 mg PO Q6H PRN pain #12 ta bs 06/21/25 doxycycline monohydrate 100 mg 100 mg PO BID #28 caps 08/23/25 capsule furosemide 20 mg tablet (Lasix) 20 mg PO QDAY #7 tabs 08/23/25 Allergies Allergy/AdvReac Type Severity Reaction Status Date / Time No Known Allergies Allergy Verified 08/23/25 13:41 Review of Systems Review of Systems Narrative Review of Systems: Review of system reviewed and within normal limits except mentioned in HPI ED Exam Narrative Physical exam: VITAL SIGNS: Reviewed. GENERAL APPEARANCE: Alert and interactive, follows commands, no acute distress, HEAD AND FACE: Non-traumatic. ENT: PERRL, pink conjunctivitis, eyelid no trauma, Mucous membrane moist. NECK: Supple, nontender, no nuchal rigidity. CHEST: No tenderness, no crepitus, no paradoxical movement, no retractions. LUNGS: Clear, well ventilated, symmetric, no rales, no wheezing, no ronchi, no stridor, good breath sounds bilaterally. HEART: Regular rate, regular rhythm, no murmur, no gallops. ABDOMEN: Soft, positive bowel sounds, nondistended, no guarding, nontender, no rebound, no masses, RECTAL: Deferred. GENITAL: Deferred. NEUROLOGICAL: Gross motor function intact sensory function intact, Appropriate for age. MUSCULOSKELETAL: low back nontender, full range of motion. EXTREMITIES: Right lower leg redness, swelling, nontender, with 2 x 2 cm wound, superficial, good granulation tissue lateral aspect of the leg, full range of motion. SKIN: Color pink, dry, no rash, no lacerations, no abrasions, no contusions. LYMPHATICS: Deferred. Course Quality Measures none Orders Category Date Time Status EKG (ED ONLY) *Do not use* NOW Care 08/23/25 14:05 Completed EKG (ED Only) Stat Exams 08/23/25 14:05 Draft US venous doppler LE BI Stat Exams 08/23/25 14:06 Completed XR chest 2V Stat Exams 08/23/25 14:05 Completed B-Type Natriuretic Peptide Stat Lab 08/23/25 14:13 Completed CBC Stat Lab 08/23/25 14:13 Completed Comprehensive Metabolic Panel Stat Lab 08/23/25 14:13 Completed Drug Screen,Urine Stat Lab 08/23/25 15:42 Completed Magnesium Stat Lab 08/23/25 14:13 Completed Partial Thromboplastin Time Stat Lab 08/23/25 14:13 Completed Prothrombin Time with INR Stat Lab 08/23/25 14:13 Completed Troponin I Stat Lab 08/23/25 14:13 Completed Urinalysis, C/S if Indicated Stat Lab 08/23/25 15:42 Completed Furosemide [Lasix] Med 08/23/25 16:50 Discontinued 40 mg PO X1 ONE cefTRIAXone [Rocephin] 1,000 mg Med 08/23/25 16:50 Discontinued Lidocaine 1% 20 ml [Xylocaine 1% 20 ML] 2.1 ml IM X1 Vital Signs Vital signs: Vital Signs Temperature 98.5 F 08/23/25 13:58 Pulse Rate 73 08/23/25 13:58 Respiratory Rate 18 08/23/25 13:58 Blood Pressure 133/85 H 08/23/25 13:58 Pulse Oximetry (%) 99 08/23/25 13:58 Oxygen Delivery Method Room Air 08/23/25 13:58 Skin / Abscess / Foreign Body MDM Narrative MDM Narrative:: 08/23/25 13:39 50-year-old male with a history of congestive heart failure, presents to the emergency room with a chief complaint of bilateral lower extremity swelling as well as cellulitis to his left lower extremity. Patient states he was sent over by his primary care provider for IV antibiotics. Patient is having redness and swelling to the left lower extremity since May, was seen by PCP once and completed a course of antibiotic for 1 week. For the last few days patient noticed some blister on the lateral aspect of the leg. Patient is ambulatory. Denies any fever denies any trauma denies any other complaints. Patient admits of using marijuana meth and cocaine. Patient's workup today all came back unremarkable no leukocytosis noted, CMP unremarkable. Ultrasound of the lower extremities negative for DVT. Ultrasound left lower extremity negative for DVT. Tested positive for methamphetamine cocaine and marijuana EKG showed sinus rhythm, ventricular rate of 89 bpm, no ST segment elevation depression noted. Patient received ceftriaxone IM will be sent this patient home on doxycycline for 2 weeks Patient data External records reviewed:: None Clinical information provided by:: patient Social determinants that could affect healthcare access:: none Patient has the following chronic illnesses:: None How is presenting disease/condition affected by chronic disease/condition?: no chronic disease Evaluation data The following diagnostics were reviewed and interpreted by me:: lab results, radiology exam(s) and EKG tracing(s) Lab and/or radiology exams considered but not ordered:: None Interpretation Summary: EKG showed normal sinus rhythm, ventricular rate of 89 bpm, no ST segment elevation depression noted. I personally reviewed and interpreted the x-ray of this patient. There is no acute abnormalities found, no infiltrates no pneumothorax no hemothorax normal chest x-ray. Review of other structures was without significant abnormal findings also. I additionally reviewed the radiologist report and agree with the interpretation. Medications / Prescriptions Medications or Prescriptions considered but not ordered:: None Medication administrations:: Medication Administration History Discontinued Medications Ceftriaxone Sodium 1,000 mg/ (Lidocaine HCl 2.1 ml) 0 mg IM X1 ONE Stop: 08/23/25 16:51 Furosemide (Furosemide 40 Mg Tablet) 40 mg PO X1 ONE Stop: 08/23/25 16:51 Ceftriaxone IM Consultations Consultation(s) initiated? (list below): No Diagnosis Skin/Abscess Differential Diagnosis: cellulitis Most likely diagnosis given after review of the tests above:: Left lower leg cellulitis Admission Indicated Admission indicated?: not indicated Admission Request Was there a request for admission?: No Disposition Plan Disposition Plan: Discharge Discharge Attestation Discharge Attestation: The patient and all family members were given an opportunity to ask questions and understood the discharge instructions. Discharge instructions specifically effects, indications for sooner follow up or return to the emergency department, and the expected course of current diagnosis. Patient condition: Stable Discharge Plan Plan Patient Disposition: HOME (Self Care) Discharge Disposition comment: Stable Prescriptions/Referrals Prescriptions/Med Rec: New doxycycline monohydrate 100 mg capsule 100 mg PO BID Qty: 28 0RF furosemide [Lasix] 20 mg tablet 20 mg PO QDAY Qty: 7 0RF No Action tramadol 50 mg tablet 50 mg PO Q6H PRN (Reason: pain) Qty: 12 0RF Referrals: Lakeshia Jin LABOR DELIVERY SPECIALIST [Primary Care Provider] - In 1 week Problem List Clinical Impression: Cellulitis of leg Patient/Caregiver Discharge Instructions Discharge Activity: activity as tolerated Education Materials: Discharge Instructions for Cellulitis Additional Instructions: Thank you for the opportunity for serving you today. You are stable for dischar ged . You are advised to: Follow-up with your PCP in 1 to 2 days Return to ED for worsening of symptoms Increase oral fluids Take medication as prescribed Elevate your legs as needed Continue daily dressing with nonadherent dressing as needed Print Language: Armenian Stand Alone Forms: Edwina Award Info., Patient Portal Info Letter JULIO CESAR/SCOT Supervising Physician JULIO CESAR/SCOT Supervising Physician: MD Abdirizak
[2025-08-23 17:13] VITALS: BP 147/87; PULSE 75
[2025-08-23] MEDS: cefTRIAXone 1,000 MG, LIDOCAINE 1% 20 ML 2.1 ML IM (17:13)
== END 2025-08-23 17:30 | disposition home or self-care (01) ==
PROVIDERS: Nurse Practitioner Family; Emergency Provider Family Medicine; PCP Nurse Practitioner Family
DX: L03.116 Cellulitis of left lower limb (principal)
CPT/HCPCS: 36415; 71046; 80053; 80307; 81001; 83735; 83880; 84484; 85025; 85610; 85730; 93005; 93970; 96372; 99284; J0696; J3490; A9270

== ENCOUNTER → 2025-11-04 | Outpatient (CLI) | payer MEDICAID, SELFPAY | END | disposition home or self-care (01) | PROVIDERS: PCP Family Medicine; Referring Provider Family Medicine; Visit Provider Student in an Organized Health Care Education/Training Program | DX: I87.312 Chronic venous hypertension (idiopathic) with ulcer of left lower extremity (principal); L97.822 Non-pressure chronic ulcer of other part of left lower leg with fat layer exposed; I11.0 Hypertensive heart disease with heart failure; Z72.0 Tobacco use; I83.029 Varicose veins of left lower extremity with ulcer of unspecified site; L03.116 Cellulitis of left lower limb | CPT/HCPCS: 29581; A9270 ==

== ENCOUNTER → 2025-11-07 | Outpatient (CLI) | payer MEDICAID, SELFPAY | END | disposition home or self-care (01) | LOC: SWHD 11:34 | PROVIDERS: PCP Family Medicine; Referring Provider Family Medicine; Visit Provider Surgery | DX: I87.312 Chronic venous hypertension (idiopathic) with ulcer of left lower extremity (principal); L97.822 Non-pressure chronic ulcer of other part of left lower leg with fat layer exposed; I11.0 Hypertensive heart disease with heart failure; Z72.0 Tobacco use; L03.116 Cellulitis of left lower limb | CPT/HCPCS: 29581 ==

== ENCOUNTER → 2025-11-11 | Outpatient (CLI) | payer MEDICAID, SELFPAY | END | disposition home or self-care (01) | LOC: SWHD 10:19 | PROVIDERS: PCP Family Medicine; Referring Provider Family Medicine; Visit Provider Surgery | DX: I87.312 Chronic venous hypertension (idiopathic) with ulcer of left lower extremity (principal); L97.822 Non-pressure chronic ulcer of other part of left lower leg with fat layer exposed; I11.0 Hypertensive heart disease with heart failure; L03.116 Cellulitis of left lower limb; Z72.0 Tobacco use | CPT/HCPCS: 29581 ==

== ENCOUNTER → 2025-11-18 | Outpatient (CLI) | payer MEDICAID, SELFPAY | END | disposition home or self-care (01) | LOC: SWHD 10:26 | PROVIDERS: PCP Family Medicine; Referring Provider Family Medicine; Visit Provider Student in an Organized Health Care Education/Training Program | DX: I87.312 Chronic venous hypertension (idiopathic) with ulcer of left lower extremity (principal); L97.822 Non-pressure chronic ulcer of other part of left lower leg with fat layer exposed; I11.0 Hypertensive heart disease with heart failure; L03.116 Cellulitis of left lower limb; Z72.0 Tobacco use | CPT/HCPCS: 29581 ==